=== PATIENT | male | born 1960 | race Two or more races ===

== ENCOUNTER 2024-08-06 16:33 | Emergency (ER) | payer MEDICAID, SELFPAY ==
[2024-08-06 16:34] VITALS: BMI 26.4
--- NOTE | 2024-08-06 16:41 | XR_ITS ---
Examination: PA lateral chest 2 views Technique: Upright PA lateral chest 2 views Exam date and time: August 06, 2024 at 1706 hrs. Indications: Onset chest pain today Findings: Normal heart size Lungs are clear. The osseous structures are intact with moderate thoracic spondylosis Impression: No active disease
--- NOTE | 2024-08-06 16:41 | EKG_ITS ---
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
--- NOTE | 2024-08-06 16:42 | PD.EDRME ---
Rapid Medical Screening Exam RME Arrival date/time: 08/06/24 16:33 63 year old male present to ED for c/o of chest pain/sob. I have greeted and performed a focused initial assessment of this patient. A comprehensive ED assessment and evaluation of the patient, analysis of all test results, and completion of the medical decision making process will be conducted by additional ED providers. Chief Complaint: Chest Pain Time Seen by Provider: 08/06/24 16:38
[2024-08-06 16:56] VITALS: BP 138/90; PULSE 73; RESP 18; TEMP 37.1; O2SAT 97
[2024-08-06 17:07] LABS: Basophils % (Auto) 1 % (0-2.5); Eosinophils # (Auto) 0.2 Thou/mm3 (0.0-0.5); Eosinophils % (Auto) 2 % (0-10); Hematocrit 42.1 % (41.0-53.0); Hemoglobin 14.2 g/dL (13.5-16.0); Immature Granulocytes % (Auto) 0 % (0-0); Immature Granulocytes Auto 0.01 Thou/mm3 (0.00-0.00); Lymphocytes # (Auto) 3.3 Thou/mm3 (1.0-4.8); Lymphocytes % (Auto) 42 % (10-50); Mean Corpuscular HGB Conc 33.7 g/dl (31.0-37.0); Mean Corpuscular Hemoglobin 32.1 pg (25.0-35.0); Mean Corpuscular Volume 95 fL (80-100); Monocytes # (Auto) 0.5 Thou/mm3 (0.0-0.8); Monocytes % (Auto) 6 % (0-12); Neutrophils % (Auto) 50 % (37-80); Nucleated Red Blood Cell % 0 /100 WBC (0); Platelet Count 216 Thou/mm3 (140-440); RDW Standard Deviation 46.9 fL (35.1-43.9); Red Blood Count 4.43 Miln/mm3 (4.50-5.90)
[2024-08-06 17:30] LABS: B-Type Natriuretic Peptide 113 pg/mL (0-100)
[2024-08-06 17:33] LABS: Alanine Aminotransferase 20 U/L (10-49); Albumin, Serum 4.7 gm/dL (3.4-4.8); Albumin/Globulin Ratio 1.6 (1.2-2.2); Alkaline Phosphatase 55 U/L (46-116); Anion Gap 9 (7-16); Aspartate Amino Transferase 17 U/L (0-34); BUN/Creatinine Ratio 12 Ratio (12-20); Bilirubin,Total 0.6 mg/dL (0.3-1.2); Blood Urea Nitrogen 16 mg/dL (9-23); Carbon Dioxide 24.6 mMol/L (20.0-31.0); Chloride 108 mMol/L (98-107); Creatinine (Component) 1.3 mg/dL (0.6-1.3); Estimated Creatinine Clearance 66.6 mL/min (>60); Glucose 136 mg/dL (74-106); Lipase 47 U/L (12-53); Magnesium 1.9 mg/dL (1.6-2.6); Osmolality,Calculated 286 (275-295); Potassium 4.5 mMol/L (3.4-5.1); Sodium 142 mMol/L (136-145); Total Protein 7.7 gm/dL (5.7-8.2); Troponin I < 0.020 ng/mL (0.0-0.045); eGFR > 60 See Note
[2024-08-06 19:22] VITALS: BP 142/85; PULSE 85; RESP 17; TEMP 36.7; O2SAT 98
--- NOTE | 2024-08-06 19:42 | EDNOTE_ITS ---
ED General RME/HPI General Chief complaint: Chest Pain Stated complaint: CHEST PAIN, DYSPNEA TODAY Time Seen by Provider: 08/06/24 16:38 Arrival date/time: 08/06/24 16:33 CC: Chest pain shortness of breath HPI single episode 3 days ago that spontaneously resolved an episode today lasting approximately 1 hour with spontaneous resolution patient describes there is more chest pressure anterior across the entire chest denies nausea vomiting headache or fever. No other symptoms. Patient has a significant cardiac history with 1 stent, is on Coumadin secondary to allergic response to Eliquis. Currently the patient is afebrile nontoxic-appearing and not in any acute distress. RME / HPI RME / HPI narrative: 08/06/24 16:33 63 year old male present to ED for c/o of chest pain/sob. I have greeted and performed a focused initial assessment of this patient. A comprehensive ED assessment and evaluation of the patient, analysis of all test results, and completion of the medical decision making process will be conducted by additional ED providers. Related Data Home Medications ?Medication ?Instructions ?Recorded ?Confirmed amiodarone 200 mg tablet (Pacerone) 200 mg PO DAILY #0 tabs 02/23/14 07/01/20 enalapril maleate 10 mg tablet 10 mg PO QDAY #0 tabs 0 02/23/14 07/01/20 (Vasotec) furosemide 40 mg tablet (Lasix) 40 mg PO QDAY #0 tabs 02/23/14 07/01/20 metformin 500 mg tablet 500 mg PO BIDAC #0 tabs 02/0507/01/20 (Glucophage) metoprolol tartrate 50 mg tablet 50 mg PO BID #0 tabs 02/23/14 07/01/20 potassium chloride 10 mEq 10 meq PO QDAY #0 tabs 02/2307/01/20 tablet,extended release (Klor-Con) pravastatin 40 mg tablet 40 mg PO HS #0 tabs 02/23/14 07/01/20 (Pravachol) warfarin 1 mg tablet (Coumadin) 1 mg PO QDAY #0 tabs 0 02/23/14 07/01/20 warfarin 4 mg tablet (Coumadin) 4 mg PO QDAY #0 tabs 0 02/23/14 07/01/20 Allergies Allergy/AdvReac Type Severity Reaction Status Date / Time No Known Allergies Allergy Verified 08/06/24 16:37 Review of Systems Review of Systems Narrative Review of Systems: GEN: No fever, no chills, no weight loss EYES: No discharge, no visual changes, no pain HEENT: No ear pain, no congestion, no sore throat PULM: No shortness of breath, no cough, no congestion CV: No chest pain, no dyspnea on exertion, no palpitations GI: No nausea, no vomiting, no diarrhea, no pain, no constipation : No frequency, no urgency, no dysuria MUSC/SKEL: No joint pain, no back pain SKIN: No rash PSYCH: No hallucinations, no depression HEME/LYMPH: No easy bleeding or bruising tendencies NEURO: No weakness, no headache Past Medical History Past Medical History NEUROLOGIC: Positive Cerebrovascular Accident CARDIAC: Positive Cardiac Arrhythmia, Atrial Fibrillation, Hypercholesterolemia and Hypertension; Negative Congestive Heart Failure RESPIRATORY: Negative Chronic Obstructive Pulmonary Disease (COPD) GENITOURINARY: Negative Renal Disease ENDOCRINE: Positive Diabetes Mellitus Type 2; Negative Diabetes Mellitus Type 1 Surgical History SURGICAL: Positive Coronary Stent Social History SMOKING STATUS: Former smoker ED Exam Narrative Physical exam: [General: Obese not in cot no acute distress Head normocephalic HEENT: Within acceptable limits Neck is supple nontender Chest equal chest rise nontender to palpation Respiratory: Clear to auscultation no wheezes crackles or rubs CV: Rate irregular no murmurs rubs or clicks Abdomen is soft nontender no masses positive bowel sounds all 4 quadrants Back: No CVA tenderness no spinous process tenderness from cervical spine thoracic and lumbar spine Skin: Intact no petechiae rash induration ulceration or crepitus Extremities: Moving all extremity against resistance cap refill less than 2 seconds neurosensory intact Neuro: Awake alert oriented x3 Glascow coma 15 no focal deficits] Course Quality Measures none Orders Category Date Time Status EKG (ED ONLY) *Do not use* NOW Care 08/06/24 16:42 Completed EKG (ED Only) Stat Exams 08/06/24 16:41 Draft XR chest 2V Stat Exams 08/06/24 16:41 Completed BNP [B-Type Natriuretic Peptide] Stat Lab 08/06/24 16:49 Completed CBC Stat Lab 08/06/24 16:49 Completed CMP [Comprehensive Metabolic Panel] Stat Lab 08/06/24 16:49 Completed Lipase Stat Lab 08/06/24 16:49 Completed Mag [Magnesium] Stat Lab 08/06/24 16:49 Completed Troponin I Stat Lab 08/06/24 16:49 Completed Vital Signs Vital signs: Vital Signs Temperature 98.8 F 08/06/24 16:56 Pulse Rate 73 08/06/24 16:56 Respiratory Rate 18 08/06/24 16:56 Blood Pressure 138/90 H 08/06/24 16:56 Pulse Oximetry (%) 97 08/06/24 16:56 Oxygen Delivery Method Room Air 08/06/24 16:56 [facility] Patient data External records reviewed:: [facility] previous records Clinical information provided by:: patient and family Social determinants that could affect healthcare access:: none Patient has the following chronic illnesses:: Stent placement diabetes hypertension hyperlipidemia on Coumadin last INR was 2.2 checked yesterday. How is presenting disease/condition affected by chronic disease/condition?: u neffected by Evaluation data The following diagnostics were reviewed and interpreted by me:: lab results and radiology exam(s) Lab and/or radiology exams considered but not ordered:: EKG performed at 193 shows a ventricular rate of 5 8 QRS of 102 QTc of 429 this is a true A-fib with slow ventricular response when compared to old EKG of July 01, 2020 there are no significant changes CBC shows no acute leukocytosis anemia thrombocytopenia CMP shows no acute electrolyte imbalances renal impairment transaminitis or T. bili elevation Troponin is negative BNP is 113 Lipase is 47 Chest x-ray is unremarkable as interpreted me read by radiology. Interpretation Summary: Suspect the patient has more anxiety than anything else as he is concerned about multiple items the patient is afebrile nontoxic-appearing with a completely unremarkable exam. Medications Medications considered but not ordered:: None Medication administrations:: None Consultations Consultation(s) initiated? (list below): No Diagnosis Differential Diagnosis ED Complaint MDM: ACS OK pneumonia Most likely diagnosis given after review of the tests above:: Chest pressure Admission Indicated Admission indicated?: not indicated Explain why admission is indicated or not indicated:: Stable for discharge Admission Request Was there a request for admission?: No Disposition Plan Disposition Plan: Discharge Discharge Attestation Discharge Attestation: The patient and all family members were given an opportunity to ask questions and understood the discharge instructions. Discharge instructions specifically effects, indications for sooner follow up or return to the emergency department, and the expected course of current diagnosis. Patient condition: Stable Medical Decision Making Differential Diagnosis Differential Diagnosis: ACS [place] pneumonia Lab Data 08/06/24 16:49 08/06/24 16:49 Labs: Lab Results 08/06/24 Range/Units 16:49 WBC 8.0 (3.8-10.6) Thou/mm3 RBC 4.43 L (4.50-5.90) Miln/mm3 Hgb 14.2 (13.5-16.0) g/dL Hct 42.1 (41.0-53.0) % MCV 95 (80-100) fL MCH 32.1 (25.0-35.0) pg MCHC 33.7 (31.0-37.0) g/dl RDW Std Deviation 46.9 H (35.1-43.9) fL Plt Count 216 (140-440) Thou/mm3 Neut % (Auto) 50 (37-80) % Lymph % (Auto) 42 (10-50) % [place] % (Auto) 6 (0-12) % Eos % (Auto) 2 (0-10) % Baso % (Auto) 1 (0-2.5) % Neut # (Auto) 4.0 (1.8-7.7) Thou/mm3 Lymph # (Auto) 3.3 (1.0-4.8) Thou/mm3 [place] # (Auto) 0.5 (0.0-0.8) Thou/mm3 Eos # (Auto) 0.2 (0.0-0.5) Thou/mm3 Baso # (Auto) 0.0 (0.0-0.2) Thou/mm3 Immature Gran # (Auto) 0.01 H (0.00-0.00) Thou/mm3 Absolute Nucleated RBC 0.00 (0.00-0.00) Thou/mm3 Immature Gran % 0 (0-0) % Nucleated RBC % 0 (0) /100 WBC Sodium 142 (136-145) mMol/L Potassium 4.5 (3.4-5.1) mMol/L Chloride 108 H (98-107) mMol/L Carbon Dioxide 24.6 (20.0-31.0) mMol/L Anion Gap 9 (7-16) BUN 16 (9-23) mg/dL Creatinine 1.3 (0.6-1.3) mg/dL Estim Creat Clear Calc 66.6 (>60) mL/min eGFR > 60 (60 - ) See Note BUN/Creatinine Ratio 12 (12-20) Ratio Glucose 136 H (74-106) mg/dL Calculated Osmolality 286 (275-295) Calcium 10.0 (8.3-10.6) mg/dL Corrected Calcium 10.0 (8.5-10.1) mg/dL Magnesium 1.9 (1.6-2.6) mg/dL Total Bilirubin 0.6 (0.3-1.2) mg/dL AST 17 (0-34) U/L ALT 20 (10-49) U/L Alkaline Phosphatase 55 (46-116) U/L Troponin I < 0.020 (0.0-0.045) ng/mL B-Natriuretic Peptide 113 H (0-100) pg/mL Total Protein 7.7 (5.7-8.2) gm/dL Albumin 4.7 (3.4-4.8) gm/dL Globulin 3.0 (2.3-3.5) gm/dL Albumin/Globulin Ratio 1.6 (1.2-2.2) Lipase 47 (12-53) U/L Discharge Plan Plan Patient Disposition: HOME (Self Care) Patient condition on transfer: Stable Prescriptions/Referrals Prescriptions/Med Rec: No Action furosemide [Lasix] 40 MG tablet 40 mg PO QDAY Qty: 0 metformin [Glucophage] 500 MG tablet 500 mg PO BIDAC Qty: 0 enalapril maleate [Vasotec] 10 MG tablet 10 mg PO QDAY Qty: 0 pravastatin [Pravachol] 40 MG tablet 40 mg PO HS Qty: 0 amiodarone [Pacerone] 200 MG tablet 200 mg PO DAILY Qty: 0 potassium chloride [Klor-Con 10] 10 MEQ tablet extended release 10 meq PO QDAY Qty: 0 warfarin [Coumadin] 4 MG tablet 4 mg PO QDAY Qty: 0 metoprolol tartrate 50 MG tablet 50 mg PO BID Qty: 0 warfarin [Coumadin] 1 MG tablet 1 mg PO QDAY Qty: 0 Referrals: No Primary/Family,Physician [Primary Care Provider] - In 1 week Problem List Clinical Impression: Atypical chest pain Patient/Caregiver Discharge Instructions Other Activity Instructions:: 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
== END 2024-08-06 20:00 | disposition home or self-care (01) ==
PROVIDERS: Physician Assistant; Emergency Provider Emergency Medicine
DX: R07.89 Other chest pain (principal)
CPT/HCPCS: 36415; 71046; 80053; 83690; 83735; 83880; 84484; 85025; 93005; 99283